=== PATIENT | male | born 1970 | race African-American/Black ===

== ENCOUNTER 2021-04-11 18:11 | Emergency (ER) | payer OTHER ==
[~2021-04-11] VITALS: Ht 170.2 cm; Wt 124.7 kg
[2021-04-11] MEDS ORDERED: OMEPRAZOLE40 MG PO (18:16)
[2021-04-11] MEDS ORDERED: CELECOXIB50 MG PO (18:16)
[2021-04-11] MEDS ORDERED: NORCO5 PO ×2 (20:20→20:45)
[2021-04-11 20:49] VITALS: BP 130/86
== END 2021-04-11 20:52 | disposition home or self-care (01) ==
LOC: ER 18:11
DX: S93.491A Sprain of other ligament of right ankle, initial encounter (principal); S93.691A Other sprain of right foot, initial encounter; K21.9 Gastro-esophageal reflux disease without esophagitis; Z88.0 Allergy status to penicillin; Z79.899 Other long term (current) drug therapy; X50.1XXA Overexertion from prolonged static or awkward postures, initial encounter; Y93.89 Activity, other specified; Y92.89 Other specified places as the place of occurrence of the external cause; Y99.9 Unspecified external cause status